=== PATIENT | male | born 1995 | race Caucasian/White ===

== ENCOUNTER → 2017-05-29 | Outpatient (CLI) | payer OTHER ==
[~2017-05-29] MED LIST: CONRAY-43 43% 50ML VIAL (Q9960) As Ordered ONE; LIDOCAINE 1% MDV 20ML VIAL As Ordered ONE; TRIAMCINOLONE ACETONIDE SUSP 40 MG/ML VIAL (J3301) As Ordered ONE
--- NOTE | 2017-05-30 17:06 | REP ---
Right hip injection The procedure was performed under the direct supervision of Dr. Baez. The benefits and risks including but not limited to pain infection and bleeding and anaphylaxis were explained to the patient and informed consent was obtained. The right femoral neck was localized using fluoroscopic guidance. The skin was prepped and draped in a sterile fashion. 1% lidocaine was used as a local anesthetic. Using fluoroscopic guidance a 22-gauge spinal needle was inserted and advanced to the femoral neck. 0.5 ml of Conray 43 was injected to verify placement. 10 ml of a solution containing 9 ml of 1% Xylocaine and 1 ml of Kenalog 40 mg was injected. The needle was then removed. The patient tolerated the procedure well and there were no immediate complications. 2 seconds of fluoro time was utilized for this procedure. Reviewed by PURA Iniguez 05/29/2017 05:18 PSigned by Pramod Baez MD 05/30/2017 04:56 P
== END ==
LOC: M RADPRO 09:20
PROVIDERS: ATTEND Physician Assistant Medical
DX: M25.551 Pain in right hip (principal); M25.851 Other specified joint disorders, right hip
CPT/HCPCS: 20610; 77002; J3301; Q9960

== ENCOUNTER → 2018-10-05 | Outpatient (CLI) | payer OTHER ==
[~2018-10-05] MED LIST changes: +AMBI10TA PO; -CONRAY-43 43% 50ML VIAL (Q9960) As Ordered ONE; +HYDR-643 PO; -LIDOCAINE 1% MDV 20ML VIAL As Ordered ONE; +PROZ20CA11 PO; -TRIAMCINOLONE ACETONIDE SUSP 40 MG/ML VIAL (J3301) As Ordered ONE
--- NOTE | 2018-10-07 08:56 | SLEEPCENT ---
DATE OF PROCEDURE: 10/05/2018 ORDERED BY: Nancy Ovalles Nocturnal polysomnography was performed for evaluation of sleep physiology in this patient with a history of excessive somnolence and nonrestorative sleep who has a history of snoring. 8 hours and 16 minutes of data were reviewed. There were 473 minutes of sleep identified. Sleep latency was mildly short at 6.5 minutes. Rapid eye movement (REM) latency was normal at 62 minutes. Sleep architecture was good with 6 REM cycles. Overall sleep efficiency was 96.6%. The patient's electrocardiogram showed a sinus rhythm with an average heart rate of 62 beats per minute. Rate ranged between 40 and 80 beats per minute. Electroencephalogram (EEG) showed essentially normal waveforms for awake and sleep. Sleep stage distribution was reasonably normal. There were only 2 respiratory events identified of 10 seconds in duration or greater for an apnea-hypopnea index of 0.3. Snoring was noted throughout much of the test. The respiratory related arousals occurred 0.3 times per hour. There were no oxygen desaturations below 90 and no significant activity in the limb leads. IMPRESSION: Normal nocturnal polysomnography with snoring.
== END ==
LOC: M SLEEP 19:22
PROVIDERS: ATTEND Nurse Practitioner Family
DX: R06.83 Snoring (principal); R40.0 Somnolence

== ENCOUNTER 2018-10-17 23:22 | Emergency (ER) | payer OTHER ==
[~2018-10-17] VITALS: Ht 175.3 cm; Wt 63.6 kg
[2018-10-17] MEDS ORDERED: PROZ20CA11 PO (23:32)
[2018-10-17] MEDS ORDERED: AMBI10TA PO (23:32)
[2018-10-17] MEDS ORDERED: HYDR-643 PO (23:32)
[2018-10-18] MEDS ORDERED: ACETAMINOPHEN 325 MG/10.15 ML UDC PO ONE
[2018-10-18 01:14] LABS: INFLUENZA A AMPLIFICATION NEGATIVE (NEGATIVE); INFLUENZA B AMPLIFICATION NEGATIVE (NEGATIVE)
[2018-10-18 01:48] VITALS: BP 106/56
--- NOTE | 2018-10-18 09:12 | REP ---
Clinical: Cough and shortness of breath . Comparison: Negative . Technique: PA and lateral. Findings: The mediastinum and cardiac silhouette are normal. The lung anthony are clear and without acute consolidation, effusion, or pneumothorax. The skeletal structures are intact and normal. Impression: 1. No acute cardiopulmonary process. Electronically Signed by Wilber Magallanes MD 10/18/2018 09:04 A
== END 2018-10-18 01:46 | disposition home or self-care (01) ==
LOC: M ED 23:22
DX: J06.9 Acute upper respiratory infection, unspecified (principal); F41.9 Anxiety disorder, unspecified; Z79.899 Other long term (current) drug therapy